=== PATIENT | male | born 1995 | race Caucasian/White ===

== ENCOUNTER 2023-09-14 16:22 | Emergency (ER) | payer SELFPAY ==
[2023-09-14 17:19] VITALS: BP 114/68; PULSE 82; RESP 20; TEMP 37; O2SAT 97; BMI 21.9
--- NOTE | 2023-09-14 17:20 | ED.GENADULT ---
HPI - General Adult General Stated complaint: cyst Related Data Allergies Allergy/AdvReac Type Severity Reaction Status Date / Time From ANTIVERT AdvReac Intermediate TACHYCARDIA Uncoded 08/08/20 18:23 Course Course Course Narrative: This is a rapid medical exam. defer additional HPI, ROS, PE to primary provider. 28 yo male with no known medical history here with painful lump to rectum with bleeding for several days. Unable to visualize in triage VSS
--- NOTE | 2023-09-15 00:13 | ED.MALEGU ---
HPI - Male Genitourinary General Chief complaint: General Medical Stated complaint: cyst Time Seen by Provider: 09/14/23 21:55 Source: patient Mode of arrival: ambulatory Limitations: no limitations History of Present Illness HPI Narrative: Patient with history of hemorrhoids had increased pain today and started bleeding. No prior treatment Related Data Previous Rx's Medication Instructions Recorded hydrocortisone acetate 25 mg 25 mg HI BID #12 ea 09/15/23 rectal suppository (Anusol-HC) Allergies Allergy/AdvReac Type Severity Reaction Status Date / Time From ANTIVERT AdvReac Intermediate TACHYCARDIA Uncoded 08/08/20 18:23 Review of Systems Review of Systems: Yes all other systems are reviewed and are negative PMFSH Social History Social History Advance Directives: No Advance Directives Information Provided: No Physical Exam Vital Signs: Vital Signs: Last Vital Signs Temp 98.6 F 09/14/23 17:19 Pulse 82 09/14/23 17:19 Resp 20 09/14/23 17:19 BP 114/68 09/14/23 17:19 Pulse Ox 97 09/14/23 17:19 O2 Del Method Room Air 09/14/23 17:19 BMI result Body Mass Index 21.9 Appearance: Alert. Oriented X3. No acute distress. CVS: Normal heart rate and rhythm. Pulses normal. Respiratory: No respiratory distress. Equal air entry bilateral, Abdomen: Soft and nontender. Bowel sounds are present, rectal: Thrombosed external hemorrhoid with active bleeding tender to touch Medical Decision Making Medical Decision Making MDM Narrative: Patient has thrombosed external hemorrhoids incision made in elliptical fashion and good amount of blood clots removed patient fell better after procedure dressing applied Procedures Abscess I/D Site: teresa-rectal (External hemorrhoid) Local Anesthetic: lidocaine 2% Amount of anesthesia used (mL): 2 Technique: incised with blade Discharge Plan Discharge Clinical Impression: External hemorrhoid, thrombosed Patient Disposition: Home, Self-Care Instructions: Hemorrhoids (ED) Additional Instructions: Avoid constipation Use suppositories twice daily until healed completely Prescriptions: New hydrocortisone acetate [Anusol-HC] 25 mg suppository 25 mg HI BID Qty: 12 0RF
[2023-09-15] MEDS: Acetaminophen 325 MG TABLET 650 MG PO (00:19)
[2023-09-15 01:10] VITALS: BP 120/72; PULSE 72; RESP 18; O2SAT 99
== END 2023-09-15 00:25 | disposition home or self-care (01) ==
PROVIDERS: Emergency Provider Internal Medicine
DX: K64.5 Perianal venous thrombosis (principal)
CPT/HCPCS: 46040; 99283; 99284

== ENCOUNTER 2024-11-29 13:34 | Emergency (ER) | payer SELFPAY ==
--- NOTE | ~2024-11-29 | XR_ITS ---
EXAMINATION: XR LUMBAR SPINE 2-3 VIEWS HISTORY: low back pain COMPARISON: Comparison is made with the prior examination dated 03/26/2014. FINDINGS: AP, lateral, and coned down views of the lumbar spine are submitted. Osseous mineralization is normal. Five nonrib-bearing lumbar vertebral bodies are identified, maintaining normal height without evidence of fracture. Again seen is slight spondylolisthesis of L5 on S1. There is mild disc space narrowing at L1-2 and L2-3. Pars defects are not identified, although evaluation is limited without oblique views. The visualized paraspinal soft tissues are unremarkable. XR/XR lumbar spine 2-3V IMPRESSION: Slight spondylolisthesis of L5 on S1 without change. Mild degenerative disc disease of the upper lumbar spine. No evidence of fracture. Electronically signed by: Juan Joy MD 11/29/2024 02:17 PM [facility]
[2024-11-29 13:36] VITALS: BP 126/72; PULSE 72; RESP 18; TEMP 36.8; O2SAT 98; BMI 22.8
--- NOTE | 2024-11-29 13:36 | ED_ITS ---
HPI - Back Pain/Injury General Chief Complaint: Back Pain/Injury Stated Complaint: Back Pain Fall 11/28/24 Time Seen by Provider: 11/29/24 15:03 Source: patient, RN notes reviewed and old records reviewed Mode of arrival: ambulatory Limitations: no limitations History of Present Illness ED Provider: Marshall HPI Narrative: Patient is a 29-year-old male presenting with complaint of lower back pain since Wednesday. States that he was putting his pants on and pain began by bending forward. He states that the pain was so severe at onset this caused him to slowly fall. He denies head strike or loss of consciousness, he is not anticoagulated. He reports another fall at work today, also wrote describes this as a ?slow fall? and denies head strike, LOC. he denies any prior back surgeries. Denies saddle anesthesia or bowel or bladder incontinence, urinary retention. Denies fevers. Denies cancer history, IV drug use. He denies pain with palpation states pain is worse with movement. Denies radiation of pain to lower extremities. Denies any weakness, numbness, tingling to lower extremities. MD elicited complaint: back pain Pertinent past history: prior back pain Onset (ago): day(s) Timing: constant Severity: severe Similar Symptoms Previously: Yes Quality: aching Location: lumbar spine Radiation: none Exacerbating factors: movement Context: bending Associated symptoms: denies other symptoms Related Data Previous Rx's ?Medication ?Instructions ?Recorded hydrocortisone acetate 25 mg 25 mg [place] BID #12 ea 09/15/23 rectal suppository (Anusol-HC) cyclobenzaprine 10 mg tablet 10 mg PO TID PRN muscle spasm #14 11/29/24 tabs lidocaine 5 % topical patch 1 patch topical DAILY #15 ea 11/29/24 prednisone 20 mg tablet 40 mg (2 x 20 mg) PO DAILY #10 tabs 11/29/24 Allergies Allergy/AdvReac Type Severity Reaction Status Date / Time From ANTIVERT AdvReac Intermediate TACHYCARDIA Uncoded 11/29/24 13:40 Review of Systems Review of Systems: Yes all other systems are reviewed and are negative Constitutional: Constitutional: Reports as per [facility] [place] Social History Social History Alcohol intake: current Alcohol intake frequency: a few times a month Advance Directives: No Advance Directives Information Provided: Yes Do you have a plan to hurt others: No Plan Physical Exam Vital Signs: Vital Signs: Last Vital Signs Temp 98.2 F 11/29/24 13:36 Pulse 72 11/29/24 13:36 Resp 18 11/29/24 13:36 BP 126/72 11/29/24 13:36 Pulse Ox 98 11/29/24 13:36 O2 Del Method Room Air 11/29/24 13:36 BMI result Body Mass Index 22.8 Vital signs have been reviewed and appear to be correct. Blood pressure normal. Heart rate normal. Respiratory rate normal. Temperature normal. Oxygen sat uration normal. Const: General: cooperative, healthy appearing and no acute distress Orientation/consciousness: oriented to person, oriented to place, oriented to time and patient oriented x3 Limitations: no limitations HEENT: Head: Yes normocephalic and Yes atraumatic Ears: external ears normal General nose exam: Normal external nose present Face and sinus: Yes face symmetric Mouth: oropharynx normal and moist mucous membranes Throat: Yes uvula midline Eyes: Pupils: Equal, round and reactive pupils present Neck: Neck: Yes normal visual inspection and Yes supple Resp: Effort & Inspection: normal respiratory effort and able to speak in complete sentences Auscultation: clear to auscultation bilaterally Cardio: Rate: regular rate Rhythm: regular rhythm Heart sounds: S1 normal heart sound present and S2 normal heart sound present GI: Palpation (GI): Soft to palpation and nontender Auscultation: normoac tive bowel sounds : General: Yes no CVA tenderness Back/Spine/Pelvis: Back: no CVA tenderness Thoracic/Lumbar Spine: thoracic and lumbar spine normal to inspection, thoraco-lumbar ROM normal, straight leg raise negative bilaterally, pain with thoraco-lumbar ROM, No thoracic spinal tenderness and No lumbar spinal tenderness Pelvis: no pain with anterior- posterior compression and no pain with lateral compression Sacroiliac joints: bilaterally nontender Skin: General skin exam: elasticity normal and turgor normal Neuro: General: oriented to person, oriented to place, oriented to time, patient oriented x3, gait normal, tone normal, moves all extremities, Normal light touch and pain sensation, no focal motor deficits, CN's II-XI intact bilaterally and deep tendon reflexes 2+ bilaterally Cranial nerves: Yes Equal, round and reactive pupils present Cognition (Neuro): normal cognition Motor exam (neuro): 5/5 motor strength present throughout, Normal motor muscle tone present throughout and Motor abnormalities not present Extrem: General: Yes full ROM, Yes no pedal edema and Yes no calf tenderness Psych: Mental Status: mental status grossly normal Affect: normal affect Thought process: Normal thought process present Course Course Course Narrative: This is a Rapid Medical Exam performed in triage by Jill Doyle PA-C. Full HPI, ROS and PE to be performed by primary ED provider. 29yo M w/pmhx spondylosis presenting to the ED c/o acute on chronic back pain with 3 falls 2/2 pain. Admits fell on Wednesday s/p trying to put pants on, then had additional fall yesterday & fall today at work. Denies head trauma/LOC. Pain worse w/movement. denies incontinence/retention. Takes Tylenol for pain w/o relief PE: ambulating w/cane. back pain not reproducible to palpation Plan: XR Medical Decision Making Medical Decision Making [facility] Narrative: Patient is a 29-year-old male presenting with complaint of lower back pain since Wednesday. On exam patient is awake, A+Ox3, VS WNL, afebrile, normal neurological exam without focal deficits, physical exam findings as above. Given reported symptoms and physical exam findings, initial differential includes but is not limited to lumbar strain, lumbar radiculopathy, degenerative disc disease, disc herniation, spinal stenosis, spondylosis. Less likely vertebral fracture. Do not suspect malignancy/mass, SEA, cauda equina/cord compression. X-ray lumbar spine notable for spondylolisthesis of L5 on S1, mild DDD of upper lumbar spine. My interpretation is in agreement with the radiologist's interpretation. Results discussed with patient and all questions answered. Will treat with short course of prednisone, Flexeril, topical lidocaine patches. Patient states he does not currently have a PCP. Recommended that patient attempt to establish care with a PCP as he would likely benefit from physical therapy. Patient provided with resources for establishing care with a PCP. Return precautions discussed at bedside. Patient verbalized understanding of and agreement with plan. Differential Diagnosis Differential Diagnoses: The differential diagnosis associated with the presentation includes As per MDM Admission/Observation Consideration of admission/observation: Escalation of care including admission/observation considered Patient would have been admitted to the hospital had their work up had any findings where hospital admission was appropriate and their clinical presentation warranted hospital admission. Independent Interpretation I performed an independent interpretation of an: Plain X-Ray Interpretation: Spondylolisthesis of L5 on S1, mild DDD of upper lumbar spine. Radiology Impression Discussion of test interpretation with radiology: I have reviewed the radiologist's reading. Radiologist Impression: XR/XR lumbar spine 2-3V IMPRESSION: Slight spondylolisthesis of L5 on S1 without change. Mild degenerative disc disease of the upper lumbar spine. No evidence of fracture. External Record Review External record reviewed: Inpatient record, Office record and Outpatient record Prescription Management I considered prescription management with: Pain Medication and Other Discharge Plan Discharge Clinical Impression: Strain of lumbar region Patient Disposition: Home, Self-Care Instructions: Low Back Strain (ED), Back Pain (ED), Core Strengthening Exercises (ED) Additional Instructions: You were evaluated in the emergency department today for back pain. Your evaluation did not show signs of medical conditions requiring emergent intervention at this time. We recommended that you use ibuprofen or Tylenol per package directions every 6 hours as needed for pain. If necessary, you can alternate these medications so that you take one medication every 3 hours. For instance, at noon take ibuprofen, then at 3:00 p.m. take Tylenol, then at 6:00 p.m. take ibuprofen. You have been prescribed a short course of steroids to decrease inflammation. You have been prescribed a muscle relaxer which you may take every 8 hours as needed for spasms. You have been prescribed 5% topical lidocaine patches which you can wear for up to 12 hours in a 24 hour period. Do not apply heat directly over the patches. Please schedule an appointment for follow-up with your primary care physician this week for further evaluation of your symptoms. Return to the emergency department if you experience worsening back pain, difficulty walking, fevers, numbness, tingling, incontinence, groin numbness or tingling, or any other concerning symptoms. Prescriptions: New lidocaine 5 % adhesive patch,medicated 1 patch topical DAILY Qty: 15 0RF Rx Instructions: leave on most painful area for up to 12 hrs cyclobenzaprine 10 mg tablet 10 mg PO TID PRN (Reason: muscle spasm) Qty: 14 0RF prednisone 20 mg tablet 40 mg PO DAILY Qty: 10 0RF No Action hydrocortisone acetate [Anusol-HC] 25 mg suppository 25 mg KS BID Qty: 12 0RF Stand Alone Forms: Work/School Release Print Language: Bengali
[2024-11-29 16:00] VITALS: BP 119/67; PULSE 70; RESP 18; TEMP 36.5; O2SAT 98
[2024-11-29 16:03] VITALS: BP 119/67; PULSE 70; RESP 18; TEMP 36.5; O2SAT 98
== END 2024-11-29 16:03 | disposition home or self-care (01) ==
PROVIDERS: Emergency Provider Student in an Organized Health Care Education/Training Program
DX: S39.012A Strain of muscle, fascia and tendon of lower back, initial encounter (principal); X58.XXXA Exposure to other specified factors, initial encounter; Y93.9 Activity, unspecified; Y92.9 Unspecified place or not applicable; Y99.9 Unspecified external cause status
CPT/HCPCS: 72100; 99283; 99284

== ENCOUNTER → 2024-11-29 13:41 | Outpatient (BNV) | payer SELFPAY | PROVIDERS: Emergency Provider Student in an Organized Health Care Education/Training Program; Visit Provider Radiology Diagnostic Radiology | DX: M54.50 Low back pain, unspecified (principal) | CPT/HCPCS: 72100 ==

== ENCOUNTER 2025-08-29 08:25 | Outpatient (AMB) | payer SELFPAY ==
[2025-08-29 08:48] VITALS: BP 98/66; PULSE 77; TEMP 36.5; O2SAT 99; BMI 22.1
--- NOTE | 2025-08-29 08:48 | AM.OFFWIN_ITS ---
Intake Vital Signs 08/29/25 08:48 Height 5 ft 9 in Weight 150 lb BMI 22.1 BP 98/66 Blood Pressure Location Lt brachial Position Sitting Pulse 77 Pulse Source Pulse Oximeter Temp 97.7 F Temp Source Oral Pulse Oximetry (%) 99 Oxygen Delivery Method Room Air Intake Visit Reasons: EP Back pain and tightning Intake Note: pt presents with mid low back pain after jerking awake in the middle of the night d/t fire alarm. pt reports h/o spine disorder Allergies From ANTIVERT Adverse Reaction (Intermediate, Uncoded 11/29/24 13:40) TACHYCARDIA Medication List - Last Reconciled 08/29/25 by Davis Mccrary MD No Known Home Meds Do you need a note to return to daycare/school/sports/work: Yes Return to daycare/school/sports/work/other note: work HPI EP Back pain and tightning HPI Details History of Present Illness The patient is a 30-year-old male presenting with severe left-sided lower back pain. Lower back pain: - Onset: The pain began at approximately 2:00 AM. - Description: The patient reports that the pain is severe and localized to the left side of his lower back. - Inciting event: The patient experience d the pain upon waking suddenly due to a fire alarm going off, which startled him and led to him falling on the floor. - Associated symptoms: The pain is not r adiating to the lower extremities. - Aggravating factors: Movement exacerba tristen the pain. - Impact: The patient describes the pain as incapacitating, preventing normal movement. 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 - Employment Impact: The patient is unab le to work today due to the severity of his back pain. Family History: - No family history of kidney stones rep orted. Problem List - Musculoskeletal pain in the lumbar reg ion Plan - Administer pain medication and muscle relaxants to alleviate musculoskeletal pain. - Instruction given to apply local heat to the affected area to reduce discomfort. - Provided justification for absence fro m work, recommending a few days off for recovery. - follow-up with PCP Review of Systems - General: No fever no chills - Neurological: No headaches no dizziness - Ear nose throat: No sore throat no hearing difficulty no ear pain - Cardiovascular: No syncope, no chest pain, no palpitations - Gastrointestinal: No nausea vomiting or diarrhea Physical Exam General: No acute distress HEENT: No acute findings Neck: Supple Respiratory system: Able to talk in full sentences, no audible wheeze No flank pain Back: Pain located lumbar area paraspinal Extremities: Straight leg negative [employer] [facility]: Alert awake oriented x3 motor intact Skin: Normal turgor [facility] Social History Alcohol intake: current Alcohol intake frequency: a few times a month Substance Use Type: Marijuana Physical Exam Vital Signs: Last Vital Signs Temp 97.7 F 08/29/25 08:48 Pulse 77 08/29/25 08:48 BP 98/66 08/29/25 08:48 Pulse Ox 99 08/29/25 08:48 Oxygen Delivery Method Room Air 08/29/25 08:48 BMI result Body Mass Index 22.1 Assessment & Plan Assessment & Plan (1) Strain of lumbar paraspinal muscle: Code(s): S39.012A - Strain of muscle, fascia and tendon of lower back, initial encounter Qualifiers: Encounter type: initial encounter Qualified Code(s): S39.012A - Strain of muscle, fascia and tendon of lower back, initial encounter Plan History of Present Illness The patient is a 30-year-old male presenting with severe left-sided lower back pain. Lower back pain: - Onset: The pain began at approximately 2:00 AM. - Description: The patient reports that the pain is severe and localized to the left side of his lower back. - Inciting event: The patient experienced the pain upon waking suddenly due to a fire alarm going off, which startled him and led to him falling on the floor. - Associated symptoms: The pain is not radiating to the lower extremities. - Aggravating factors: Movement exacerbates the pain. - Impact: The patient describes the pain as incapacitating, preventing normal movement. 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 - Employment Impact: The patient is unable to work today due to the severity of his back pain. Family History: - No family history of kidney stones reported. Problem List - Musculoskeletal pain in the lumbar region Plan - Administer pain medication and muscle relaxants to alleviate musculoskeletal pain. - Instruction given to apply local heat to the affected area to reduce discomfort. - Provided justification for absence from work, recommending a few days off for recovery. - follow-up with PCP Medications: New diclofenac sodium take it with food 75 mg PO BID 20 tabs 0RF pain 10 days Changed From prednisone 40 mg (2 x 20 mg) PO DAILY 10 tabs 0RF To prednisone 10 mg PO DAILY 3 tabs 0RF 3 days Refilled cyclobenzaprine 10 mg PO TID PRN 14 tabs 0RF muscle spasm Discontinued hydrocortisone acetate (Anusol-HC) Discontinued Reason: Patient Completed Course 25 mg [place] BID 12 ea 0RF cyclobenzaprine Discontinued Reason: Patient Completed Course 10 mg PO TID PRN 14 tabs 0RF muscle spasm lidocaine 5% leave on most painful area for up to 12 hrs Discontinued Reason: Patient Completed Course 1 patch topical DAILY 15 ea 0RF prednisone Discontinued Reason: Patient Completed Course 40 mg (2 x 20 mg) PO DAILY 10 tabs 0RF Coding Level of Care Code Est Pt Level 3 (51908) Diagnoses Strain of lumbar paraspinous muscle, initial encounter S39.012A Encounter type: initial encounter
== END 2025-08-29 09:02 | disposition home or self-care (01) ==
PROVIDERS: Visit Provider Internal Medicine
DX: S39.012A Strain of muscle, fascia and tendon of lower back, initial encounter (principal)

== ENCOUNTER → 2025-08-29 08:25 | Outpatient (BNVA) | payer SELFPAY | PROVIDERS: Visit Provider Internal Medicine | DX: S39.012A Strain of muscle, fascia and tendon of lower back, initial encounter (principal); X58.XXXA Exposure to other specified factors, initial encounter; Y93.9 Activity, unspecified; Y92.9 Unspecified place or not applicable; Y99.9 Unspecified external cause status | CPT/HCPCS: 99212 ==